=== PATIENT | female | born 1990 | race Caucasian/White ===

== ENCOUNTER → 2020-06-28 12:08 | Outpatient (BNVA) | payer OTHER, SELFPAY | PROVIDERS: PCP Obstetrics & Gynecology; Visit Provider Nurse Practitioner Family | DX: Z20.828 Contact with and (suspected) exposure to other viral communicable diseases (principal) | CPT/HCPCS: 87635 ==

== ENCOUNTER 2022-10-19 10:56 | Outpatient (CLI) | payer OTHER, SELFPAY ==
--- NOTE | 2022-10-19 11:24 | US_ITS ---
WS: [id number] THYROID ULTRASOUND HISTORY: DIFFUSE GOITER COMPARISON: None available. Right lobe: 1.3 cm x 1.1 cm x 3.7 cm (w x ap x l). Volume: 2.7 cm3. Normal size gland. There is a small cyst in the lower pole RIGHT thyroid measuring 3 x 3 x 4 mm. No s olid mass or echogenic foci. Left lobe: 1.1 cm x 0.8 cm x 3.7 cm (w x ap x l). Volume: 1.7 cm3. Normal size and echotexture. No significant or dominant nodules are present. Isthmus: 0.2 cm. Benign cervical chain lymph nodes. US/US thyroid [id number] IMPRESSION: Negative ultrasound thyroid. No suspicious thyroid nodules or imaging follow-up necessary.
== END 2022-10-19 10:57 | disposition home or self-care (01) ==
PROVIDERS: PCP Family Medicine; Visit Provider Family Medicine
DX: E04.0 Nontoxic diffuse goiter (principal)
CPT/HCPCS: 76536